=== PATIENT | male | born 1960 | race Caucasian/White ===

== ENCOUNTER 2024-07-02 09:05 | Outpatient (CLI) | payer MEDICARE ==
[2024-07-02] MEDS ORDERED: Lidocaine 1% PF 5 ML VIAL ONE (09:26)
[2024-07-02] MEDS ORDERED: Sodium Bicarbonate 2.5 MEQ/5 ML SDV ONE (09:26)
[2024-07-02] MEDS ORDERED: Iopamidol-M 200 41% 10 ML VIAL FS ONE (09:41)
[2024-07-02 12:50] VITALS: BP 118/80; TEMP 98.5
== END 2024-07-02 11:09 | disposition home or self-care (01) ==
LOC: CSHRAD 09:05
PROVIDERS: ATTEND Neurological Surgery
DX: M48.062 Spinal stenosis, lumbar region with neurogenic claudication (principal); M25.78 Osteophyte, vertebrae; M47.816 Spondylosis without myelopathy or radiculopathy, lumbar region; M24.28 Disorder of ligament, vertebrae
CPT/HCPCS: 62284; 72132; 77003; Q9966

== ENCOUNTER 2024-10-09 08:49 | Outpatient (CLI) | payer MEDICARE | END 2024-10-09 08:50 | disposition home or self-care (01) | LOC: CSHCP 08:49 | PROVIDERS: ATTEND Internal Medicine Critical Care Medicine | DX: R06.02 Shortness of breath (principal) | CPT/HCPCS: 94060; 94664; 94726; 94729; 94760 ==

== ENCOUNTER 2025-10-04 09:28 | Emergency (ER) | payer MEDICARE ==
[2025-10-04] MEDS ORDERED: HYDROmorphone 0.5 MG/0.5 ML SYRINGE ONE ×4 (10:20→16:15)
[2025-10-04] MEDS ORDERED: Lidocaine 1% (PF) 30 ML VIAL ONE (10:42)
[2025-10-04 10:58] LABS: #Basophils 0.06 10x3/uL (0.0-0.2); #Eosinophils 0.25 10x3/uL (0.0-0.5); #Monocytes 2.62 10x3/uL (0.0-1.1); #Neutrophils 20.31 10x3/uL (1.5-8.4); %Basophils 0.2 % (0.0-2.0); %Eosinophils 1.0 % (0.0-6.0); %Lymphocytes 4.4 % (18.0-47.0); %Monocytes 10.5 % (0.0-10.0); %Neutrophils 81.5 % (40.0-75.0); Hematocrit 41.9 % (38.8-50.0); Hemoglobin 14.1 g/dL (13.5-17.5); Mean Corpuscular Hemoglobin 29.6 pg (27.0-33.0); Mean Corpuscular Volume 87.8 fL (81.2-95.1); Platelet Count 209 10x3/uL (150-450); Red Blood Cell (RBC) Count 4.77 10x6/uL (4.32-5.72); White Blood Cell (WBC) Count 24.95 10x3/uL (3.5-10.5)
[2025-10-04 11:29] LABS: ALT (SGPT) 31 U/L (Less than 45); AST (SGOT) 38 U/L (11-34); Albumin 3.8 g/dL (3.1-4.5); Alkaline Phosphatase 46 U/L (40-110); Anion Gap 15 mmol/L (10-20); BUN (Urea Nitrogen) 14 mg/dL (8.4-25.7); Bilirubin, Total 0.7 mg/dL (0.3-1.2); Calc. Creatinine Clearance 0 mL/min (70-130); Calcium 8.9 mg/dL (7.8-10.44); Carbon Dioxide 28 mmol/L (23-31); Chloride 100 mmol/L (98-107); Globulin 2.8 g/dL (2.4-3.5); Glucose 88 mg/dL (80-115); Potassium 4.8 mmol/L (3.5-5.1); Sodium 138 mmol/L (136-145)
[2025-10-04] MEDS ORDERED: VANCOMYCIN 2 GRAM/400 ML BAG 2 GM in Premix 1 BAG IVPB SCH (11:45)
[2025-10-04] MEDS ORDERED: Ketorolac Tromethamine 30 MG (1 mL) VIAL ONE (11:55)
[2025-10-04] MEDS ORDERED: cefTRIAXone (ROCEPHIN) 2 GM VIAL ONE (11:56)
[2025-10-04 13:11] LABS: BF Segmented Neutrophils 91 %; Cell Count Non Hematic 1 %
[2025-10-04 13:45] LABS: Cocaine Metabolite Screen Negative (Negative); THC/Cannabinoid Screen Negative (Negative); Tricyclic Screen Negative (Negative)
[2025-10-04 15:52] LABS: Acetaminophen Less than 10 mcg/mL (Less than 10); Salicylate Less than 8.0 mg/dL (Less than 8.0)
== END 2025-10-04 17:03 | disposition short-term general hospital (02) ==
LOC: CSHERS 09:28
DX: T84.53XA Infection and inflammatory reaction due to internal right knee prosthesis, initial encounter (principal); M25.561 Pain in right knee; E03.9 Hypothyroidism, unspecified; F17.290 Nicotine dependence, other tobacco product, uncomplicated; F17.210 Nicotine dependence, cigarettes, uncomplicated
CPT/HCPCS: 73564; 80053; 80306; 80307; 82945; 83605; 84157; 85025; 86140; 87040; 87070; 87077; 87149 ×2; 87186; 89051; 89060; J0696; J1171; J1885; J2003; J2060; J3375; 20610; 36415; 96365; 96366; 96375; 96376